=== PATIENT | male | born 1990 | race Caucasian/White ===

== ENCOUNTER 2016-12-30 20:18 | Emergency (ER) | payer SELFPAY ==
[2016-12-30 20:59] VITALS: BP 116/74; TEMP 98; O2SAT 97
== END 2016-12-30 21:57 | disposition left against medical advice (07) ==
LOC: ER 20:18
DX: Z53.21 Procedure and treatment not carried out due to patient leaving prior to being seen by health care provider (principal)

== ENCOUNTER → 2019-08-17 | Outpatient (CLI) | payer OTHER ==
--- NOTE | 2019-08-17 13:26 | CT ---
EXAM DESCRIPTION: Abdoment/Pelvis w/o Contrast CLINICAL HISTORY: 29 years, Male, CALCULUS OF URETER COMPARISON: None. TECHNIQUE: CT of the abdomen and pelvis is performed according to our non contrast protocol. FINDINGS: The lung bases are clear. Liver, spleen, and pancreas are unremarkable. Gallbladder is surgically absent. Adrenal glands appear normal. The right kidney contains multiple calculi with no hydronephrosis. Upper calyceal calculus measures 1.5 mm and a 2 mm calculus is seen in the posterior mid right kidney. Anterior lower calyceal calculus measures 3 mm. The left kidney contains multiple stones. In the upper calyx of the left kidney, larger stone measures 3 mm and a smaller stone measures 1 mm. 1 mm calculus in the mid left kidney. Lower calyces of the left kidney contained a 1 mm, 2 mm and 5 mm calculi with an additional 3 mm calculus in the lowest calyx. Retroaortic left renal vein is incidentally noted. Following the ureters distally, left ureter is dilated compared to the right side and there is a stone protruding into the bladder from the left ureterovesical junction which is much larger than the above measured renal calculi at 8 mm. Mild thickening of the bladder wall. Distal right ureter is unremarkable. Prostate is prominent measuring 4.8 cm in transverse dimension. Small bowel loops appear normal in caliber with normal wall thickness. There is no lymphadenopathy, inflammation, or free fluid observed. In the pelvis, the appendix is normal. No inflammation around the cecum or terminal ileum or sigmoid colon. Rectal wall thickness is normal for degree of distention. No free fluid or mass in the pelvis. No inguinal or lower pelvic adenopathy. Coronal and sagittal reformatted images confirm the findings. IMPRESSION: Calculus 8 mm protruding into the bladder from the left ureteral orifice with mildly dilated left ureter and intrarenal collecting system. Additional smaller calculi in both kidneys. This exam was performed according to our departmental dose-optimization program, which includes automated exposure control, adjustment of the mA and/or kV according to patient size and/or use of iterative reconstruction technique. Total DLP equals 779.54 mGycm. Electronically signed by: Femi Ovalles MD 08/17/2019 1:24 PM CDT
== END ==
LOC: CT 10:24
PROVIDERS: ATTEND Nurse Practitioner Family
DX: N20.1 Calculus of ureter (principal); N20.0 Calculus of kidney

== ENCOUNTER 2020-08-27 15:39 | Emergency (ER) | payer SELFPAY ==
[2020-08-27 15:50] VITALS: TEMP 97.3
[2020-08-27] MEDS ORDERED: ACETAMINOPHEN 500 MG TAB PO ONE (16:01)
[2020-08-27] MEDS ORDERED: ONDANSETRON INJ 4 MG/2 ML VIAL IV ONE (16:01)
[2020-08-27] MEDS ORDERED: MORPHINE SULFATE INJ 10 MG/ML VIAL IV ONE (16:01)
[2020-08-27] MEDS ORDERED: SODIUM CHLORIDE 0.9% 1000ML 1,000 ML IVS ONE (16:01)
--- NOTE | 2020-08-27 16:17 | ED.PDOC ---
History of Present Illness - General Chief Complaint: Problem Stated Complaint: left flank pain Time Seen by Provider: 08/27/20 15:59 - History of Present Illness Initial Comments: 30 yo M PMH kidney stones presents to ED c/o left sided flank pain since this am. Denies fever cough sob rfecent travel or contact with covid19. Denies fever chills nausea vomiting diarrhea chest pain sob diaphoresis. No change in diet rest bowel or bladder has PMD Ken for follow up admits smoking denies drinking admits FH DM denies FH HTN no other c/o today. PPE worn-N95 surgical mask with attached face shield over N95 gloves and face shield over that Allergies/Adverse Reactions: Allergies NO KNOWN ALLERGY Allergy (Verified 12/30/16 20:59) Home Medications: Ambulatory Orders Acetaminophen [Tylenol] 650 mg PO Q6H PRN #30 tab 08/27/20 Ketorolac Tromethamine [Toradol Tabs] 10 mg PO Q6H PRN #16 tab 08/27/20 Ondansetron Tab [Zofran Tab] 4 mg PO TID PRN 5 Days #15 tab 08/27/20 Tamsulosin HCl [Flomax] 0.4 mg PO DAILY #15 cap 08/27/20 Review of Systems - Review of Systems Constitutional: States: see HPI EENTM: States: see HPI Respiratory: States: see HPI Cardiology: States: see HPI Gastrointestinal/Abdominal: States: see HPI Genitourinary: States: see HPI Musculoskeletal: States: see HPI Skin: States: see HPI Neurological: States: see HPI Endocrine: States: see HPI Hematologic/Lymphatic: States: see HPI Past Medical History (General) - Patient Medical History Hx Seizures: No Hx Stroke: No Hx Dementia: No Hx Asthma: No Hx of COPD: No Hx Cardiac Disorders: No Hx Congestive Heart Failure: No Hx Pacemaker: No Hx Hypertension: Yes Hx Thyroid Disease: No Hx Diabetes: No Hx Gastroesophageal Reflux: No Hx Renal Disease: No Hx of HIV: No Hx MRSA: No Surgical History: cholecystectomy - Vaccination History Hx Influenza Vaccination: No Hx Pneumococcal Vaccination: No - Social History Hx Tobacco Use: Yes Hx Chewing Tobacco Use: No Hx Alcohol Use: Yes - rarely Hx Substance Use: No Family Medical History - Family History Mother Family History: Unknown Living Status: Still Living Physical Exam - Physical Exam General Appearance: No apparent distress Eye Exam: bilateral normal Ears, Nose, Throat: normal ENT inspection Neck: non-tender, full range of motion Respiratory: no respiratory distress Cardiovascular/Chest: regular rate, rhythm Gastrointestinal/Abdominal: non tender, soft Rectal Exam: deferred Back Exam: CVA tenderness (L) Extremity: normal range of motion, non-tender Neurologic: no motor/sensory deficits Skin Exam: normal color Progress - Progress Progress: 08/27/20 16:17 A/P-Flank Pain-iv bolus tylenol morphine zofran cbc cmp lipase us cxr ct abdomen pelvis reassess - Results/Orders Results/Orders: Laboratory Tests 08/27/20 08/27/20 08/27/20 15:54 15:54 16:16 WBC 6.3 RBC 4.75 Hgb 15.5 Hct 42.9 MCV 90.1 MCH 32.6 H MCHC 36.1 RDW 13.5 Plt Count 201 MPV 8.1 Absolute Neuts (auto) 3.50 Absolute Lymphs (auto) 2.10 Absolute Monos (auto) 0.50 Absolute Eos (auto) 0.10 Absolute Basos (auto) 0.10 Neutrophils % 55.5 Lymphocytes % 33.2 Monocytes % 7.9 Eosinophils % 2.3 Basophils % 1.1 Sodium 139 Potassium 3.8 Chloride 104 Carbon Dioxide 25 Anion Gap 13.8 BUN 13 Creatinine 1.10 BUN/Creatinine Ratio 11.8 Random Glucose 87 Serum Osmolality 277.0 Calcium 8.6 Total Bilirubin 0.8 AST 22 ALT 35 Alkaline Phosphatase 80 Serum Total Protein 7.2 Albumin 4.3 Globulin 2.9 Albumin/Globulin Ratio 1.5 Lipase 41 Urine Color Brown Urine Appearance Cloudy Urine pH 6.5 Ur Specific [place] 1.025 Urine Protein 100 H Urine Glucose (UA) Negative Urine Ketones 15 H Urine Blood Large H Urine Nitrite Negative Urine Bilirubin Small H Urine Urobilinogen 2.0 H Ur Leukocyte Esterase Negative Urine RBC Tntc H Urine WBC 0-1 Ur Epithelial Cells 0-1 Amorphous Sediment Trace Urine Bacteria Rare EXAM DESCRIPTION: Chest,1 View CLINICAL HISTORY: 30 years Male, abdominal pain COMPARISON: None. TECHNIQUE: AP portable chest. FINDINGS: Heart size is normal with normal pulmonary vascularity. No consolidating infiltrate. No pulmonary mass or worrisome nodule. No pneumothorax or pleural effusion. Bones are unremarkable. IMPRESSION: No acute process is identified in the chest. Electronically signed by: Femi Ovalles MD 08/27/2020 4:23 PM CDT EXAM: CT Abdomen and Pelvis Without Intravenous Contrast CLINICAL HISTORY: The patient is 30 years old and is Male; flank pain TECHNIQUE: Axial computed tomography images of the abdomen and pelvis without intravenous contrast. Sagittal and coronal reformatted images were created and reviewed. This CT exam was performed using one or more of the following dose reduction techniques: automated exposure control, adjustment of the mA and/or kV according to patient size, and/or use of iterative reconstruction technique. COMPARISON: CT abdomen pelvis without contrast August 17, 2019. FINDINGS: Lung bases: Unremarkable. No mass. No consolidation. ABDOMEN: Liver: Unremarkable. Gallbladder and bile ducts: Cholecystectomy without biliary dilatation. Pancreas: Unremarkable. No ductal dilation. Spleen: Unremarkable. No splenomegaly. Adrenals: Unremarkable. No mass. Kidneys and ureters: Left hydronephrosis and periureteric fat stranding, with a 5.9 x 3.9 x 8.5 mm calculus in the left mid ureter. Bilateral nephrolithiasis. No right-sided hydronephrosis or right ureter stone. Stomach and bowel: No bowel dilatation or obstruction. No bowel wall thickening. PELVIS: Appendix: The visualized appendix is normal. No pericecal inflammation to suggest acute appendicitis. Bladder: Unremarkable. No stones. Reproductive: Mild prostate gland enlargement. ABDOMEN and PELVIS: Intraperitoneal space: Unremarkable. No free air. No significant fluid collection. Bones/joints: Mild degenerative changes in the SI joints. No acute fracture. No dislocation. Soft tissues: Unremarkable. Vasculature: Unremarkable. No abdominal aortic aneurysm. Lymph nodes: No pathologically enlarged lymph nodes. IMPRESSION: 1. Left hydronephrosis and periureteric fat stranding, with a 5.9 x 3.9 x 8.5 mm calculus in the left mid ureter. 2. Bilateral nephrolithiasis. 3. Additional non-emergent findings as above. Electronically signed by: Shantelle Pugh MD 08/27/2020 4:28 PM CDT Spoke to Urologist Dr. Cortés and participated in shared decision making with patient. Patient pain free on reassessment and prefers to go home and then drive to [facility] for 9am appointment with Urologist Dr. Perez and is NPO after midnight. Will d/c tylenol ketorolac zofran flomax Departure - Departure Clinical Impression: Kidney stones, Flank pain Time of Disposition: 17:35 Disposition: Discharge to Home or Self Care Condition: Fair Departure Forms: ED Discharge - Pt. Copy, Patient Portal Self Enrollment Referrals: SUKHDEV FAJARDO IV, [employer] [Primary Care Provider] - 1-2 Days Prescriptions: Tamsulosin HCl [Flomax] 0.4 mg PO DAILY #15 cap Ketorolac Tromethamine [Toradol Tabs] 10 mg PO Q6H PRN #16 tab PRN Reason: Pain Acetaminophen [Tylenol] 650 mg PO Q6H PRN #30 tab PRN Reason: Pain Ondansetron Tab [Zofran Tab] 4 mg PO TID PRN 5 Days #15 tab PRN Reason: Nausea Home Medications: Ambulatory Orders Acetaminophen [Tylenol] 650 mg PO Q6H PRN #30 tab 08/27/20 Ketorolac Tromethamine [Toradol Tabs] 10 mg PO Q6H PRN #16 tab 08/27/20 Ondansetron Tab [Zofran Tab] 4 mg PO TID PRN 5 Days #15 tab 08/27/20 Tamsulosin HCl [Flomax] 0.4 mg PO DAILY #15 cap 08/27/20
--- NOTE | 2020-08-27 16:25 | RAD ---
EXAM DESCRIPTION: Chest,1 View CLINICAL HISTORY: 30 years Male, abdominal pain COMPARISON: None. TECHNIQUE: AP portable chest. FINDINGS: Heart size is normal with normal pulmonary vascularity. No consolidating infiltrate. No pulmonary mass or worrisome nodule. No pneumothorax or pleural effusion. Bones are unremarkable. IMPRESSION: No acute process is identified in the chest. Electronically signed by: Femi Ovalles MD 08/27/2020 4:23 PM CDT
--- NOTE | 2020-08-27 16:29 | CT ---
EXAM: CT Abdomen and Pelvis Without Intravenous Contrast CLINICAL HISTORY: The patient is 30 years old and is Male; flank pain TECHNIQUE: Axial computed tomography images of the abdomen and pelvis without intravenous contrast. Sagittal and coronal reformatted images were created and reviewed. This CT exam was performed using one or more of the following dose reduction techniques: automated exposure control, adjustment of the mA and/or kV according to patient size, and/or use of iterative reconstruction technique. COMPARISON: CT abdomen pelvis without contrast August 17, 2019. FINDINGS: Lung bases: Unremarkable. No mass. No consolidation. ABDOMEN: Liver: Unremarkable. Gallbladder and bile ducts: Cholecystectomy without biliary dilatation. Pancreas: Unremarkable. No ductal dilation. Spleen: Unremarkable. No splenomegaly. Adrenals: Unremarkable. No mass. Kidneys and ureters: Left hydronephrosis and periureteric fat stranding, with a 5.9 x 3.9 x 8.5 mm calculus in the left mid ureter. Bilateral nephrolithiasis. No right-sided hydronephrosis or right ureter stone. Stomach and bowel: No bowel dilatation or obstruction. No bowel wall thickening. PELVIS: Appendix: The visualized appendix is normal. No pericecal inflammation to suggest acute appendicitis. Bladder: Unremarkable. No stones. Reproductive: Mild prostate gland enlargement. ABDOMEN and PELVIS: Intraperitoneal space: Unremarkable. No free air. No significant fluid collection. Bones/joints: Mild degenerative changes in the SI joints. No acute fracture. No dislocation. Soft tissues: Unremarkable. Vasculature: Unremarkable. No abdominal aortic aneurysm. Lymph nodes: No pathologically enlarged lymph nodes. IMPRESSION: 1. Left hydronephrosis and periureteric fat stranding, with a 5.9 x 3.9 x 8.5 mm calculus in the left mid ureter. 2. Bilateral nephrolithiasis. 3. Additional non-emergent findings as above. Electronically signed by: Shantelle Pugh MD 08/27/2020 4:28 PM CDT
[2020-08-27 17:44] VITALS: BP 132/82; O2SAT 98
== END 2020-08-27 17:44 | disposition home or self-care (01) ==
LOC: ER 15:39
DX: N13.2 Hydronephrosis with renal and ureteral calculous obstruction (principal); I10 Essential (primary) hypertension; F17.200 Nicotine dependence, unspecified, uncomplicated; Z90.49 Acquired absence of other specified parts of digestive tract
CPT/HCPCS: 36415; 71045; 74176; 80053; 81001; 83690; 85025; J2270; J2405; J7030